=== PATIENT | female | born 1945 ===

== ENCOUNTER 2022-01-10 11:23 | Inpatient (IN) | payer OTHER ==
[~2022-01-10] VITALS: Ht 152.4 cm; Wt 63.5 kg
[2022-01-10 15:05] LABS: Hematocrit 38.4 % (33.0-51.0); Hemoglobin 12.9 g/dL (11.5-16.0); Mean Platelet Volume 9.9 fL (9.1-12.4); Platelet Count 220 K/mm3 (150-400)
[2022-01-10 15:23] LABS: Anti-Xa UFH, PHA Monitoring 0.41 IU/mL; International Normalized Ratio 1.01; Prothrombin Time Results 10.6 Sec (9.7-11.5)
[2022-01-10] MEDS ORDERED: ALBU90OI INH (15:32)
[2022-01-10] MEDS ORDERED: AMLO5 PO (15:32)
[2022-01-10] MEDS ORDERED: ATOR40TA PO (15:33)
[2022-01-10] MEDS ORDERED: BACL10 PO (15:36)
[2022-01-10] MEDS ORDERED: LOSA50 PO (15:38)
[2022-01-10] MEDS ORDERED: OMEP20ER PO (15:38)
[2022-01-10] MEDS ORDERED: Primidone50 MG PO (15:39)
[2022-01-10] MEDS ORDERED: TRELEGY ELLIPT1 EACH IH (15:39)
--- NOTE | 2022-01-10 18:17 | NUR ---
DIRECT ADMIT / SHIFT SUMMARY PT DIRECT ADMIT BROUGHT BY AMBULANCE FROM [facility] @ APPROX 1230. PT A&O X4, ABLE TO STAND AND AMBULATE FROM GURNEY TO PCU BED. PT A&O X4. VSS. SPO2 > 92% ON 1L NC. PT REPORTS 2L NC NIGHTLY & 1-2L NC PRN DURING THE DAY. PT BROUGHT W/ HEPARIN GTT INFUSING PER PREVIOUS [place] [facility] ORDERS. [facility] W/ CONTINUED MANAGEMENT OF HEPARIN GTT. HEPARIN GTT INFUSING PER [facility] ORDERS. PT DENIES CP OR ANY OTHER PAIN/DISCOMFORT. PT NPO, AWAITING CARDIOLOGY CONSULT. PT DAUGHTER AT BEDSIDE.
--- NOTE | 2022-01-10 20:09 | NUR ---
Dr Ayon to bedside at this time speaking with pt and Pt's daughter Maya.
--- NOTE | 2022-01-11 00:07 | NUR ---
EPISODE OF CP 2310 PT C/O TO THIS RN OF MINOR 2/10 CP OVER L SIDE CHEST. STATES HE JUST NOTICED IT AND DESCRIBES IT AN "ACHE" WHILE HE IS LAYING IN BED. PT APPEARS TO BE HTN SBP 180'S HR 59-60 BPM. 2330 EKG COMPLETED. DOES NOT APPEAR SIGNIFICANTLY DIFFERENT FROM PRIOR. THERMODYNAMIC PHYSICIST AT BEDSIDE, AWARE OF PT CP AND THIS RN TO GIVE NITRO PER PRN ORDER. PT STATES PAIN IS VERY MINOR BUT IS AGREEABLE TO TRY NITRO. 0000 PT STATES CP IS RESOLVED AT THIS TIME, STATES MINOR PRESSURE IN L SIDE CHEST. DENIES PAIN. TR BAND HAS BEEN REMOVED, NO ACTIVE BLEEDING PRESENT. ARMBOARD LEFT IN PLACE. THIS RN EDUCATES PT ON PRECAUTIONS WITH R RADIAL SITE D/T RISK OF BLEEDING. PT VERBALIZES UNDERSTANDING. VERBALIZES UNDERSTANDING OF NEEDING TO NOTIFY THIS RN OF ANY REOCCURRING/NEW CP.
[2022-01-11 04:15] LABS: BASOPHILS ABSOLUTE AUTO 0.11 K/mm3 (0.00-0.23); BASOPHILS PERCENT AUTO 1 % (0-2); EOSINOPHILS ABSOLUTE AUTO 0.39 K/mm3 (0.00-0.68); EOSINOPHILS PERCENT AUTO 4 % (0-6); Hematocrit 34.7 % (33.0-51.0); Hemoglobin 11.6 g/dL (11.5-16.0); IMMATURE GRAN ABSOLUTE AUTO 0.01 K/mm3 (0.00-0.10); IMMATURE GRAN PERCENT AUTO 0 % (0-1); LYMPHOCYTES ABSOLUTE AUTO 3.12 K/mm3 (0.84-5.20); LYMPHOCYTES PERCENT AUTO 31 % (21-46); MONOCYTES ABSOLUTE AUTO 0.83 K/mm3 (0.16-1.47); MONOCYTES PERCENT AUTO 8 % (4-13); Mean Corpuscular HGB 30.9 pg (26.0-34.0); Mean Corpuscular HGB Conc 33.4 g/dL (31.5-36.5); Mean Corpuscular Volume 93 fL (80-100); Mean Platelet Volume 9.9 fL (9.1-12.4); NEUTROPHILS ABSOLUTE AUTO 5.72 K/mm3 (1.96-9.15); NEUTROPHILS PERCENT AUTO 56 % (41-73); Platelet Count 235 K/mm3 (150-400); RDW Coefficient Variation 12.4 % (11.7-14.2); RDW Standard Deviation 42.3 fL (35.1-46.3); Red Blood Cell Count 3.75 M/mm3 (3.80-5.20); White Blood Cell Count 10.18 K/mm3 (4.00-11.30)
[2022-01-11 04:34] LABS: Bun/Creatinine Ratio 13.3 (12.0-20.0); Calcium, Blood 8.6 mg/dL (8.5-10.1); Creatinine, Blood 1.05 mg/dL (0.40-1.00); Potassium, Blood 3.8 mmol/L (3.5-5.5)
--- NOTE | 2022-01-11 06:06 | NUR ---
SHIFT SUMMARY PT AOX4, DYSPNEIC WITH EXERTION, SATS 96% ON 1 L O2 VIA NC. SINUS RHYTHM. DENIED CP T/O NIGHT. UP TO BATHROOM WITH THIS RN STANDBY ASSIST WITH WALKER. CONTINUOUS HEPARIN GTT, NO CHANGES TO RATE T/O SHIFT, 11 U/KG/HR. 13.9 MLS/HR. CARDIO CLEARED TO EAT AFTER MIDNIGHT. VSS T/O SHIFT.
--- NOTE | 2022-01-11 10:04 | NUR ---
CARE ASSUMPTION THIS RN ASSUMED CARE FROM JOSE RN AT 0700. VSS. TELE SR 70S. PATIENT IS ALERT AND ORIENTED X4. NEURO IS INTACT. PERRLA. PATIENT REPORTS NO PAIN. PATIENT REPORTS NO CHEST PAIN/PRESSURE. STRONG RADAIL PULSE AND PEDIS. TRACE EDEMA IN LOWER EXTREMITIES. PATIENT REPORTS NO SHORNTESS OF BREATH EXCEPT WITH ACTIVITY. CLEAR UPPER LOBES COARSE LOWER LOBES. PATIENT SKIN IS CLEAN DRY AND INTACT. PATIENT ABD IS ACTIVE NONTENDER. PATIENT IS INDEPDENT AND CALLS JUST SO WE CAN HELP WITH HER IV INFUSING. SEE SHIFT ASSESSMENT FOR FURTHER DETAILS. THIS RN CALLED MD RODRIGUEZ TO DETERMINE IF PATIENT WAS GETTING AN ANGIO OR NOT DUE TO HER TROPS TRENDING. STATED NO ANGIO DUE TO PATIENT TROPS TRENDING DOWN AND NO ACTIVELY HAVING CHEST PAIN. AWAITING ECHO TO BE DONE. DIET ORDERED FOR PATIENT, CARDIAC DIET. HEPARIN DRIP INFUSING AT 11U/KG/HR. PATIENT DAUGHTER AT BEDSIDE. PLAN OF CARE UPDATED TO PATIENT AND DAUGHTER. AMILCAR RN USED THERAPEUTIC COMMUNICATION AND ACTIVE LISTENING IN ALL INTERACTIONS. PATIENT SITTING IN BEDSIDE CHAIR. CALL LIGHT WITHIN REACH. WILL CONITNUE TO MONITOR AND PROVIDE CARE.
--- NOTE | 2022-01-11 16:49 | NUR ---
SHIFT SUMMARY MD RODRIGUEZ CAME BY TO DISCUSS THE PLAN OF CARE AND ECHO RESULTS. DURIGN THIS DISCUSSION IT WAS DECIDED TO CONTINUE MOVING FORWARD WITH MEDCIAL MANAGEMENT FOR THE PATIENT, THE PATIENT DOES NOT WANT ANY INVASSIVE INTERVENTIONS AT THIS TIME. THE PATIENT WAS EDUCATED ON FOLLOWING UP WITH A [facility] SPECIAL[facility]PITAL[facility] TO DETERMINE IF PATIENT NEEDS FURTHER INTERVENTIONS. BOTH THE PATIENT AND DAUGHTER VERABLIZED UNDERSTANDING. THE PLAN IS TO CONTINUE TO HEPARIN UNTIL TOMORROW, WHICH IF PATIENT STILL DOES NOT WANT ANY INVASSIVE INTERVENTIONS, THEN TO DC HEPARIN AND PATIENT ABLE TO GO HOME. PLAN IS TO CONTINUE ASPIRIN AND LIPITOR AND START PLAVIX TOMORROW MORNING. PATIENT AND DAUGHTER VERABLIZED UNDERSTANDING. PLAN OF CARE IS UP TO DATE. PATIENT HAS AMBULATED TO AND FROM THE BATHROOM INDENPDENTLY. PATIENT HAS SAT IN THE BEDSIDE CHAIR MAJORITY OF THE DAY. HEPARIN DRIP INFUSING AT 11U/KG/HR. NO ACUTE CHANGES THIS SHIFT. DAUGHTER REMAINS AT BEDSIDE. PATIENT HAS USED THE BATHROOM MULTIPLE TIME, BUT HAVE ALL BEEN UNMEASURED VOIDS. PATIENT CALLS IF NEEDING ASSISTANCE. CALL LIGHT WITHIN REACH. WILL CONTINUE TO MONITOR AND PROVIDE CARE UNTIL HAND OFF WITH NEXT SHIFT.
--- NOTE | 2022-01-12 07:04 | NUR ---
PT AOX4 T/O SHIFT, NO C/O CP, AVERAGE 70'S-80'S T/O SHIFT. HEPARIN GTT CONTINUES T/O SHIFT AT SAME RATE. DISCUSSED WITH BREAKER TABLE WORKER. PT'S BREATHING EVEN AND UNLABORED T/O SHIFT. APPEARED TO REST COMFORTABLY T/O NIGHT.
[2022-01-12 09:16] LABS: Bun/Creatinine Ratio 15.8 (12.0-20.0); Calcium, Blood 8.5 mg/dL (8.5-10.1); Creatinine, Blood 1.14 mg/dL (0.40-1.00); Potassium, Blood 3.6 mmol/L (3.5-5.5)
[2022-01-12] MEDS ORDERED: ASPI81CH PO (09:50)
[2022-01-12] MEDS ORDERED: CLOP75 PO (09:50)
[2022-01-12] MEDS ORDERED: FAMO20 PO (09:50)
[2022-01-12] MEDS ORDERED: FURO40 PO (09:50)
[2022-01-12] MEDS ORDERED: Prinivil10 MG PO (09:51)
--- NOTE | 2022-01-12 12:06 | NUR ---
DISCHARGE: PT CLEARED FOR DISCHARGE HOME W/PLAN TO F/UP W/PCP AND RECEIVE REFERRAL TO ASSISTANT PRODUCER IN HER [place]. IV ACCESS DC'd WNL. PT DRESSES INDEPENDENTLY. PT PROVIDED WITH DC PAPERWORK AND INSTRUCTIONS, V/U. ALL QUESTIONS HAVE BEEN ANSWERED. PT TRANSFERS SELF TO W/C AND ESCORTED FROM UNIT IN NAD.
== END 2022-01-12 11:49 | disposition home or self-care (01) | DRG 281 ==
LOC: PCU 11:23
PROVIDERS: ADMIT Internal Medicine
DX: I21.4 Non-ST elevation (NSTEMI) myocardial infarction (principal); J44.1 Chronic obstructive pulmonary disease with (acute) exacerbation; R79.1 Abnormal coagulation profile; K21.9 Gastro-esophageal reflux disease without esophagitis; N28.9 Disorder of kidney and ureter, unspecified; E78.00 Pure hypercholesterolemia, unspecified; I10 Essential (primary) hypertension; I25.10 Atherosclerotic heart disease of native coronary artery without angina pectoris; Z20.822 Contact with and (suspected) exposure to COVID-19; M19.90 Unspecified osteoarthritis, unspecified site; I48.91 Unspecified atrial fibrillation; Z85.828 Personal history of other malignant neoplasm of skin; Z98.890 Other specified postprocedural states; Z98.42 Cataract extraction status, left eye; Z98.41 Cataract extraction status, right eye; Z87.891 Personal history of nicotine dependence; Z79.52 Long term (current) use of systemic steroids; Z79.811 Long term (current) use of aromatase inhibitors; Z99.81 Dependence on supplemental oxygen; Z88.5 Allergy status to narcotic agent; Z79.51 Long term (current) use of inhaled steroids; Z79.02 Long term (current) use of antithrombotics/antiplatelets; Z79.899 Other long term (current) drug therapy
CPT/HCPCS: 36415; 80048; 83880; 84484; 85014; 85018; 85025; 85049; 85520; 85610; 93005; 93010; 93306; 94640; 94664; 94760; 94762; A9270; J1644